=== PATIENT | male | born 2000 | race Hispanic/Latino ===

== ENCOUNTER 2020-12-29 20:55 | Emergency (ER) | payer SELFPAY ==
[~2020-12-29] VITALS: Ht 162.6 cm; Wt 77.6 kg
[2020-12-29 22:40] VITALS: BP 149/84
[2020-12-29] MEDS ORDERED: CEFDINIR300 MG PO (22:41)
== END 2020-12-29 22:48 | disposition home or self-care (01) ==
LOC: FSED 21:30
DX: R31.9 Hematuria, unspecified (principal); N05.9 Unspecified nephritic syndrome with unspecified morphologic changes; R50.9 Fever, unspecified
CPT/HCPCS: 74176; 80048; 80076; 81003; 85025; 99283